=== PATIENT | female | born 1995 | race African-American/Black ===

== ENCOUNTER 2021-01-03 18:20 | Emergency (ER) | payer MEDICAID ==
[~2021-01-03] VITALS: Ht 162.6 cm; Wt 111.1 kg
--- NOTE | 2021-01-03 18:28 | NUR ---
Patient to ER bed 02 to gown for evaluation. Side rails up.
[2021-01-03] MEDS ORDERED: FLUORESCEIN SODIUM 1 MG OPHTHALMIC STRIP OP ONE (18:30)
[2021-01-03] MEDS ORDERED: TETRACAINE HCL/PF 0.5% OPHTHALMIC DROPS 4 ML OP ONE (18:30)
--- NOTE | 2021-01-03 18:30 | NUR ---
Pt. brought in by friend; earlier today she accidentally got nail glue in her left eye, she called poison control and flushed eye out for 10 minutes but still experiencing mild pain 2/10 and states feels like something in eye still.
[2021-01-03 18:43] VITALS: BP_SYST 125
--- NOTE | 2021-01-03 18:55 | NUR ---
ER at bedside examining patient.
[2021-01-03] MEDS ORDERED: BALANCED SALT IRRIG SOLN 15 ML IO ONE (19:15)
--- NOTE | 2021-01-03 19:16 | NUR ---
Report to [facility]
[2021-01-03] MEDS ORDERED: ERYEYE EACH EYE ×2 (19:28→20:16)
[2021-01-03 20:23] VITALS: BP_SYST 125
--- NOTE | 2021-01-03 20:23 | NUR ---
Patient given written and verbal discharge instructions and verbalizes understanding. ER MD discussed with patient the results and treatment provided. Patient in stable condition. ID arm band removed. Rx of Erythromycin eye oint given. Patient educated on pain management and to follow up with PMD. Pain Scale 0/10 Opportunity for questions provided and answered. Medication side effect fact sheet provided.
== END 2021-01-03 20:23 | disposition home or self-care (01) ==
LOC: SED 18:20
DX: H10.212 Acute toxic conjunctivitis, left eye (principal); Z79.899 Other long term (current) drug therapy
CPT/HCPCS: 99283